=== PATIENT | female | born 1995 | race Caucasian/White ===

== ENCOUNTER 2018-09-13 21:07 | Emergency (ER) | payer MEDICAID ==
[~2018-09-13] VITALS: Ht 152.4 cm; Wt 75.3 kg
[2018-09-13 21:29] VITALS: Ht 152.4 cm; Wt 75.3 kg
[2018-09-13 21:51] VITALS: BP 124/87
== END 2018-09-13 21:51 | disposition home or self-care (01) ==
LOC: ED 21:07
DX: O23.11 Infections of bladder in pregnancy, first trimester (principal); Z3A.10 10 weeks gestation of pregnancy

== ENCOUNTER 2019-11-27 07:07 | Emergency (ER) | payer MEDICAID ==
[~2019-11-27] VITALS: Ht 152.4 cm; Wt 80.3 kg
[2019-11-27 07:13] VITALS: Ht 152.4 cm; Wt 80.3 kg
[2019-11-27 07:49] LABS: ALBUMIN 3.9 g/dL (3.4-5.0); ALKALINE PHOSPHATASE 93 U/L (46-116); ALT/SGPT 233 U/L (14-59); AMYLASE 46 U/L (25-115); AST/SGOT 90 U/L (15-37); CARBON DIOXIDE 24.4 mmol/L (21-32); CHLORIDE SERUM 102 mmol/L (98-107); CREATININE SERUM 0.6 mg/dL (0.6-1.0); GFR1 > 60 mL/min; GLUCOSE SERUM 115 mg/dL (74-106); LIPASE 73 IU/L (73-393); POTASSIUM SERUM 3.5 mmol/L (3.5-5.1); SODIUM SERUM 137 mmol/L (136-145); TOTAL PROTEIN, SERUM 7.7 g/dL (6.4-8.2)
[2019-11-27 07:53] LABS: CALCIUM 8.6 mg/dL (8.5-10.1)
[2019-11-27 07:55] LABS: BASOPHIL % 0.5 % (0-2); PLATELET COUNT 299 x10^3mcL (130-400); RED CELL DISTRIBUTION WIDTH 13.9 % (11.5-14.5)
[2019-11-27 08:28] VITALS: BP 147/92
== END 2019-11-27 08:28 | disposition home or self-care (01) ==
LOC: ED 07:07
PROVIDERS: Emergency Medicine
DX: R10.13 Epigastric pain (principal); R11.2 Nausea with vomiting, unspecified
CPT/HCPCS: 36415; J1885; Q0092; Q0162